=== PATIENT | male | born 1960 | race Caucasian/White ===

== ENCOUNTER 2018-03-26 16:13 | Emergency (ER) | payer OTHER ==
[2018-03-26 16:35] VITALS: BP 142/91
[2018-03-26] MEDS ORDERED: Tetan/Diph/Pertus SYR(Tdap)* 0.5 ML SYR(BOOSTRIX) use SYR IM ONE (18:12)
[2018-03-26] MEDS ORDERED: Lidocaine 2% PF * 5 ML VIAL INJ ONE (18:28)
--- NOTE | 2018-03-26 19:16 | UC ---
Skin Complaint HPI - HPI Summary HPI Summary: 57 y/o male with PMH = for HTN, no anticoag, no recent tetanus shot, hit in forehead by metal rui, no LOC, no headache, + immediate lac, + bleeding, controlled with compression, occurred at 4:30pm. brought by co-worker - History of Current Complaint Chief Complaint: UCLaceration Time Seen by Provider: 03/26/18 18:20 Stated Complaint: FOREHEAD LAC WC Hx Obtained From: Patient, Family/Supervisor [employer] - co-worker Onset/Duration: Sudden Onset, Lasting Hours Onset Severity: Mild Current Severity: Mild Pain Intensity: 0 Pain Scale Used: 0-10 Numeric Location: Discrete - rigt forehead - Allergy/Home Medications Allergies/Adverse Reactions: Allergies Allergy/AdvReac Type Severity Reaction Status Date / Time No Known Allergies Allergy Verified 03/26/18 16:35 Home Medications: Home Medications Ramipril 10 mg PO 03/26/18 [History] Review of Systems Constitutional: Negative Skin: Other - lacteration Neurological: Negative Is Patient Immunocompromised?: No All Other Systems Reviewed And Are Negative: Yes PMH/Surg Hx/FS Hx/Imm Hx Previously Healthy: Yes - HTN - Surgical History Surgical History: None - Social History Alcohol Use: Daily Substance Use Type: None Smoking Status (MU): Never Smoked Tobacco Type: Smokeless Tobacco Physical Exam - Summary Physical Exam Summary: 2 cm full thickness laceration to right forehead, sparing eyeborw, all ROM of forehead intake with forehead lines unaffected, full EMOI, PERRLA. senation intact. Triage Information Reviewed: Yes Appearance: Well-Appearing, No Pain Distress, Well-Nourished Vital Signs: Initial Vital Signs Temp 99.0 F 03/26/18 16:32 Pulse 73 03/26/18 16:32 Resp 18 03/26/18 16:32 BP 142/91 03/26/18 16:32 Pulse Ox 99 03/26/18 16:32 Vital Signs Reviewed: Yes Eyes: Positive: Conjunctiva Clear Psychological Exam: Normal Skin: Positive: Other Laceration Repair - Laceration Repair 1 Description: Linear Laceration Size After Repair: Length (cm) - 2, Width (mm) - 5, Depth (mm) - 5 Modified For Repair: No Type Injection: Local Anesthesia Used: 1.0% Lido Cleansing Completed Via Routine Prep: Yes Irrigation With Pressure Irrigation Device: Yes Closure Material: Sutures Closure Method: Single Layer Suture Of: Skin Suture Type: Nylon - 5.o 9 sutures Course/Dx - Course Course Of Treatment: laceration repair, uneventful, to be removed 5-7 days - Diagnoses Provider Diagnoses: laceration, r forehead Discharge - Sign-Out/Discharge Documenting (check all that apply): Patient Departure All imaging exams completed and their final reports reviewed: No Studies - Discharge Plan Condition: Good Disposition: HOME Patient Education Materials: Care For Your Stitches (ED), Laceration (ED), Concussion (ED) Referrals: Christian Neff MD [Primary Care Provider] - Additional Instructions: - sutures to be removed in 5-7 days, may be removed by primary physician or return here for removal. - Tylenol, motrin as needed for pain - ice as needed for pain - Monitor for headache, lightheadedness, fever, chills- go to ER - possible concussion- to go ER with mental/ speech changes, headache, vomiting , vision changes no getting wet x 24- 48 hours - Billing Disposition and Condition Condition: GOOD Disposition: Home
== END 2018-03-26 19:28 | disposition home or self-care (01) ==
LOC: UCEAST 16:13
DX: S01.81XA Laceration without foreign body of other part of head, initial encounter (principal); I10 Essential (primary) hypertension; W22.8XXA Striking against or struck by other objects, initial encounter; Y92.9 Unspecified place or not applicable
CPT/HCPCS: 12011; 90715; 99201; G0463